=== PATIENT | female | born 1965 | race Caucasian/White ===

== ENCOUNTER → 2016-11-01 | Outpatient (CLI) | payer OTHER ==
[~2016-11-01] MED LIST: APRE1TAB3 PO; CYAN10005 PO; Calcium PO; FSMD/70 PO; KRIL1000 PO; MULT-506 PO; TAMO20TA47 PO; TRAM-10 PO; VITA100C4 PO; [UNRECOGNIZED DRUG - OTHER]; vitamin D
== END | disposition home or self-care (01) ==
LOC: C.MAMM 10:36
PROVIDERS: ATTEND Nurse Practitioner
DX: C50.919 Malignant neoplasm of unspecified site of unspecified female breast (principal)

== ENCOUNTER → 2016-12-17 | Outpatient (CLI) | payer OTHER ==
[2016-12-17 16:54] LABS: BASO % 0.5 %; BASO ABS # 0.02 K/uL (0-0.2); COMPLETE YES; EOS % 0.8 %; LYMPH % 19.5 %; LYMPH ABS # 0.77 K/uL (1.2-3.4); MEAN CELL VOLUME 89.2 fL (80-100); MEAN CORPUSCULAR HEMOGLOBIN 29.3 pg (25-34); MEAN CORPUSCULAR HGB CONC 32.9 g/dl (32-36); MEAN PLATELET VOLUME 11.3 fL (7.4-10.4); MONO % 11.1 %; NEUT % 68.1 %; PLATELET COUNT 195 K/uL (130-400); RED BLOOD COUNT 4.71 M/uL (4.2-5.4); WHITE BLOOD COUNT 3.95 K/uL (4.8-10.8)
[2016-12-17 17:02] LABS: CHOLESTEROL/HDL RATIO 2.2
== END | disposition home or self-care (01) ==
LOC: C.LABBFT 12:49
PROVIDERS: ATTEND Internal Medicine
DX: E55.9 Vitamin D deficiency, unspecified (principal); D72.819 Decreased white blood cell count, unspecified; Z13.6 Encounter for screening for cardiovascular disorders

== ENCOUNTER → 2017-06-27 | Outpatient (CLI) | payer OTHER ==
[2017-06-27 17:34] LABS: BASO % 0.5 %; BASO ABS # 0.02 K/uL (0-0.2); COMPLETE YES; EOS % 1.1 %; HEMATOCRIT 40.7 % (37-47); IG% 0.2 %; LYMPH % 14.1 %; LYMPH ABS # 0.62 K/uL (1.2-3.4); MEAN CORPUSCULAR HGB CONC 32.2 g/dl (32-36); MEAN PLATELET VOLUME 11.2 fL (7.4-10.4); MONO % 9.8 %; NEUT % 74.3 %; PLATELET COUNT 193 K/uL (130-400); RED BLOOD COUNT 4.52 M/uL (4.2-5.4); WHITE BLOOD COUNT 4.41 K/uL (4.8-10.8)
[2017-06-27 17:43] LABS: ALT/SGPT 28 U/L (12-78); BLOOD UREA NITROGEN 14 mg/dl (7-18); BUN/CREATININE RATIO 19.3 (10-20); CARBON DIOXIDE 28 mmol/L (21-32); CHLORIDE 104 mmol/L (98-107); CREATININE 0.71 mg/dl (0.60-1.20); GLUCOSE 82 mg/dl (70-99); POTASSIUM 3.9 mmol/L (3.5-5.1); SODIUM 139 mmol/L (136-145)
[2017-06-27 17:45] LABS: ALB/GLOB RATIO 1.1 (0.9-2); ALKALINE PHOSPHATASE 63 U/L (45-117); AST/SGOT 27 U/L (15-37)
== END | disposition home or self-care (01) ==
LOC: C.LABBFT 13:40
PROVIDERS: ATTEND Internal Medicine
DX: D72.819 Decreased white blood cell count, unspecified (principal)

== ENCOUNTER → 2017-07-20 | Outpatient (CLI) | payer OTHER ==
--- NOTE | 2017-07-21 07:48 | MAMMOGRAPHY REPORT ---
BILATERAL DIGITAL DIAGNOSTIC MAMMOGRAM TOMOSYNTHESIS WITH CAD: 07/20/2017 CLINICAL HISTORY: History of left breast cancer status post lumpectomy in 2010, who presents for rout ine annual mammography. The patient reports no current complaints. TECHNIQUE: Breast tomosynthesis in addition to standard 2D mammography was performed. Current study was also evaluated with a Computer Aided Detection (CAD) system. Bilateral CC and MLO 2-D and tomosy nthesis images were obtained. COMPARISON: Comparison is made to exams dated: 06/30/2016 mammogram, 06/18/2015 mammogram, 06/12/2014 m ammogram, 12/05/2013 mammogram, 05/30/2013 mammogram, and 09/10/2011 mammogram - [facility] BREAST COMPOSITION: The tissue of both breasts is heterogeneously dense, which may obscure small mas ses. FINDINGS: There are no suspicious masses, calcifications, or areas of nonsurgical architectural disto rtion noted in either breast. There has been no significant interval change compared to prior exams. There are stable post surgical changes from left breast from prior lumpectomy and stable post surgi maría changes from right reduction mammoplasty. A linear scar marker denotes a scar on the left superi or breast. Biopsy marker clips are again noted within the left medial and right upper outer breast. Bilateral asymmetries are stable, including an ovoid 18 mm asymmetry in the left medial breast adjac ent to the biopsy marker clip which is stable dating back to at least the 2012 exam. Scattered bilat eral benign-appearing calcifications are also unchanged. IMPRESSION: ACR BI-RADS CATEGORY 2: BENIGN There is no mammographic evidence of malignancy in either breast. A 1 year screening mammogram is rec ommended. The patient has been verbally notified of the results. Approximately 10% of breast cancers are not detected with mammography. A negative mammographic report should not delay biopsy if a clinically suggestive mass is present. Conchita Navarro M.D. /:07/20/2017 13:27:36 [facility] Supervisor: Promise STOCKTON)([place]), [facility] letter sent: Normal 1/2 BI-RADS Code: ACR BI-RADS Category 2: Benign
== END | disposition home or self-care (01) ==
LOC: C.MAMM 12:54
PROVIDERS: ATTEND Nurse Practitioner Family
DX: Z12.31 Encounter for screening mammogram for malignant neoplasm of breast (principal); Z85.3 Personal history of malignant neoplasm of breast

== ENCOUNTER 2018-02-13 12:27 | Emergency (ER) | payer OTHER ==
[~2018-02-13] VITALS: Ht 167.6 cm; Wt 62.2 kg
[~2018-02-13 12:27] MED LIST changes: -TAMO20TA47 PO; +TAMO20TA9 PO
[2018-02-13 12:39] VITALS: TEMP 37; Ht 167.6 cm; Wt 62.2 kg
[2018-02-13] MEDS ORDERED: VITACAP37 PO (12:55)
--- NOTE | 2018-02-13 13:06 | DIAGNOSTIC IMAGING REPORT ---
R WRIST MIN 3 VIEWS ROUTINE CLINICAL HISTORY: R wrist pain/ecchymosis COMPARISON: None FINDINGS: Note is made of an acute nondisplaced distal right radial fracture with intra-articular extension. This likely extends through the radial styloid. Carpal bones are intact. There is no distal right ulnar fracture. Right wrist soft tissue swelling is noted. IMPRESSION: Acute nondisplaced distal right radial fracture with intra-articular extension. Fracture likely extends through the radial styloid. Electronically signed by: Carlos Hall M.D. 02/13/2018 1:05 PM Dictated Date/Time: 02/13/2018 1:01 PM
[2018-02-13 14:06] VITALS: BP 126/84; PULSE 76; O2SAT 98
--- NOTE | 2018-02-13 14:09 | EMERGENCY ROOM VISIT NOTE ---
History First contact with patient: 12:41 Chief Complaint: WRIST PAIN Stated Complaint: WRIST PAIN, UNSURE IF BROKE OR NOT History of Present Illness The patient is a 53 year old female who presents to the Emergency Room with complaints of persistent right wrist pain and bruising after pushing a piece of furniture yesterday. As she was pushing on a futon, she reports feeling a pop in her wrist. She has had swelling and bruising. The injury happened around noontime yesterday. The patient denies any paresthesias or numbness of the right hand or fingers. She denies any pain extending into the wrist. The patient is right-hand dominant, and rates her discomfort a 5 out of 10. The patient denies taking any NSAIDs or other blood thinners. Review of Systems 10 system review was performed and was negative except for pertinent positives and negatives as indicated in history of present illness Past Medical/Surgical History Medical Problems: (1) Breast cancer (2) Psoriatic arthritis Family History Diabetes mellitus Social History Smoking Status: Never Smoker Drug Use: none Marital Status: Housing Status: lives with family Current/Historical Medications Scheduled Apremilast (Otezla), 30 MG PO BID Cyanocobalamin (Vitamin B-12), 1,000 MCG PO QAM Krill Oil (Krill Oil), 1 CAP PO QAM Multivitamin (Multivitamin), 1 TAB PO QAM Vitamin E (E-400), 400 UNITS PO DAILY Physical Exam Vital Signs Date Time Temp Pulse Resp B/P (MAP) Pulse Ox O2 Delivery O2 Flow Rate FiO2 18 12:39 37.0 85 18 122/64 95 Room Air Physical Exam CONSTITUTIONAL: Healthy and well nourished. Alert and oriented X 3 with positive affect. Patient does not appear in any acute distress. HEENT: Normocephalic, atraumatic. Pupils equal, round and reactive. NECK: Full active range of motion without discomfort. MUSCULOSKELETAL: Examination shows ecchymosis over the radial aspect of the wrist. She also has a small amount of ecchymosis over the ulnar aspect of the wrist. No significant anatomic snuffbox tenderness. No tenderness to palpation through the phalanges or metacarpals. Capillary refill is less than 2 seconds. INTEGUMENTARY: No rash or other significant dermatologic conditions noted. NEUROLOGIC: No focal neurologic deficits noted. Right hand and fingers are sensory intact. Medical Decision & Procedures ER Provider Diagnostic Interpretation: My interpretation of right wrist x-ray shows an intra-articular fracture of the distal radius styloid, and extending into the radiocarpal joint. Radiologist report is as follows: R WRIST MIN 3 VIEWS ROUTINE CLINICAL HISTORY: R wrist pain/ecchymosis COMPARISON: None FINDINGS: Note is made of an acute nondisplaced distal right radial fracture with intra-articular extension. This likely extends through the radial styloid. Carpal bones are intact. There is no distal right ulnar fracture. Right wrist soft tissue swelling is noted. IMPRESSION: Acute nondisplaced distal right radial fracture with intra-articular extension. Fracture likely extends through the radial styloid. ED Course Patient history and physical exam were performed. Nurse's notes were reviewed. Vital signs were reviewed and were normal. The patient refused any analgesics while in the emergency department. X-rays of the right wrist shows a nondisplaced fracture of the distal radius that extends into the radial styloid and radiocarpal joint. A volar Ortho-Glass splint was applied. Neurovascular check after splint placement was normal. The patient reports that she would follow-up with [facility] for further reevaluation and management. She was encouraged to intermittently apply ice and elevate the wrist for swelling and pain. Ibuprofen and Tylenol if needed for additional pain relief. The patient was happy with plan of care, voiced understanding of all discharge instructions, and denied any significant discomfort at the time of discharge. Medical Decision Medication Reconcilliation Current Medication List: was personally reviewed by ca Blood Pressure Screening Patient's blood pressure: Normal blood pressure Impression Primary Impression: Fracture of right distal radius Departure Information Dispostion Home / Self-Care Referrals Chance Abernathy M.D. Forms HOME CARE DOCUMENTATION FORM, IMPORTANT VISIT INFORMATION Patient Instructions My [facility] Additional Instructions Ice and elevate arm for swelling and pain. Ibuprofen 800 mg and/or Tylenol 1000 mg every 8 hours. You may also alternate these medications for more effective pain relief: Ibuprofen --4 HRS--> Tylenol --4 HRS--> ibuprofen --4 HRS--> Tylenol .... Keep splint dry. Follow-up with [facility] (Dr. Abernathy) for further evaluation and treatment - call for appointment. Problem Qualifiers Primary Impression: Fracture of right distal radius Encounter type: initial encounter Fracture type: closed Fracture morphology : other intra-articular Qualified Codes: S52.571A - Other intraarticular fracture of lower end of right radius, initial encounter for closed fracture
== END 2018-02-13 14:06 | disposition home or self-care (01) ==
LOC: C.EDB 12:29 → C.EDD 14:06
DX: S52.501A Unspecified fracture of the lower end of right radius, initial encounter for closed fracture (principal); X50.9XXA Other and unspecified overexertion or strenuous movements or postures, initial encounter; L40.50 Arthropathic psoriasis, unspecified

== ENCOUNTER → 2018-05-22 | Outpatient (CLI) | payer OTHER ==
[~2018-05-22] MED LIST changes: -Calcium PO; -FSMD/70 PO; -TAMO20TA9 PO; -TRAM-10 PO; -VITA100C4 PO; +VITACAP37 PO; -[UNRECOGNIZED DRUG - OTHER]; -vitamin D
[2018-05-22 17:31] LABS: BASO % 0.6 %; BASO ABS # 0.02 K/uL (0-0.2); EOS % 1.4 %; EOS ABS # 0.05 K/uL (0-0.5); HEMATOCRIT 41.5 % (37-47); HEMOGLOBIN 13.4 g/dL (12.0-16.0); LYMPH ABS # 0.77 K/uL (1.2-3.4); MEAN CELL VOLUME 87.9 fL (80-100); MEAN CORPUSCULAR HEMOGLOBIN 28.4 pg (25-34); MEAN CORPUSCULAR HGB CONC 32.3 g/dl (32-36); MEAN PLATELET VOLUME 11.5 fL (7.4-10.4); MONO % 8.6 %; NEUT % 67.4 %; NEUT ABS # 2.36 K/uL (1.4-6.5); PLATELET COUNT 200 K/uL (130-400); RED CELL DISTRIBUTION WIDTH CV 15.7 % (11.5-14.5)
[2018-05-22 17:56] LABS: ALBUMIN 3.8 gm/dl (3.4-5.0); ALKALINE PHOSPHATASE 76 U/L (45-117); ALT/SGPT 31 U/L (12-78); AST/SGOT 27 U/L (15-37); BLOOD UREA NITROGEN 17 mg/dl (7-18); CALCIUM 9.7 mg/dl (8.5-10.1); CARBON DIOXIDE 30 mmol/L (21-32); CHOLESTEROL 177 mg/dl (0-200); GLUCOSE 79 mg/dl (70-99); LDL CHOLESTEROL CALCULATED 84 mg/dl; POTASSIUM 4.3 mmol/L (3.5-5.1); SODIUM 141 mmol/L (136-145); TOTAL PROTEIN 7.6 gm/dl (6.4-8.2)
== END | disposition home or self-care (01) ==
LOC: C.LABBFT 11:22
PROVIDERS: ATTEND Internal Medicine
DX: L40.50 Arthropathic psoriasis, unspecified (principal); E55.9 Vitamin D deficiency, unspecified; D72.819 Decreased white blood cell count, unspecified; R25.1 Tremor, unspecified; Z13.6 Encounter for screening for cardiovascular disorders

== ENCOUNTER 2025-06-20 14:29 | Observation (INO) ==
--- NOTE | 2025-06-20 15:12 | Emergency Department Note ---
Impression & Plan Severe right groin pain, Obturator hernia ED Provider Note CHIEF COMPLAINT: Abdominal pain HISTORY OF PRESENTING ILLNESS: This 60-year-old female patient presents to the emergency department with her daughter for evaluation of right groin pain for the past month. The patient had an ultrasound performed last week that showed a hernia. The patient is now unable to ambulate without severe pain in the area. She also reports the pain has been radiating into her right hip. The patient saw Dr. Astorga of surgery today and had an order for an outpatient CT scan. However, the patient is still waiting for authorization of the CT scan and she cannot tolerate the pain anymore. She denies any changes in her BMs. Has had a decreased appetite, but no nausea or vomiting. Denies any urinary symptoms. Denies chest pain or SOB. She has had previous hernia repairs in the same location in the past by Dr. Jacques in 2019 and 2022. She has had an appendectomy, complete hysterectomy, , and tummy tuck in the past. She has a history of breast cancer in remission since 2011 and not currently on any medications for the breast cancer. She is not on any blood thinners. She had a piece of licorice just before she came to the ER. She had a Fairlife drink and some chips around 1:30 pm. She had yogurt at 6:30 am. REVIEW OF SYSTEMS: See HPI for pertinent positives and pertinent negatives. ALLERGIES: Amoxicillin, Latex, pollen extracts MEDICATIONS: See below PAST MEDICAL HISTORY: See below PHYSICAL EXAM: VITALS: Vitals are noted on the nurse's note and reviewed by myself. GENERAL: Non toxic, in no acute distress, non-diaphoretic. SKIN: No significant erythema, ecchymosis, or other color changes in the right lower quadrant. Capillary refill <2 sec. HEART: Regular rate and rhythm without murmurs gallops or rubs. LUNGS: Clear to auscultation bilaterally without wheezes, rales or rhonchi. No retractions or accessory muscle use. ABDOMEN: Positive bowel sounds x 4. Normal tympanic percussion. Tenderness of palpation to the right lower abdomen with what appears to be a hernia. No obvious strangulation or incarceration at this time. No other masses or hepatosplenomegaly. Dia sign negative. No CVA tenderness. No guarding, rigidity, or rebound tenderness. MUSCULOSKELETAL: No tenderness to palpation of the bony aspects of the right hip or right lower extremity. Full range of motion of the right lower extremity without pain in the hip joint, but she does have pain in the right lower quadrant of the abdomen with range of motion of the hip. NEURO: Patient was alert and oriented. No focal neurological deficits. DIFFERENTIAL DIAGNOSIS: Differential diagnosis includes incarcerated hernia, strangulated hernia, ischemic hernia, hepatitis, pancreatitis, cholecystitis, cholelithiasis, appendicitis, kidney stone, pyelonephritis, UTI, gastritis, gastroenteritis, mesenteric adenitis, obstruction, constipation, hernia, abdominal abscess, perforation, diverticulitis, IBD, ischemic colitis, abdominal aortic aneurysm, , ectopic , ovarian cyst, ovarian torsion, acute salpingitis, or others. ED COURSE AND MEDICAL DECISION MAKING: MEDICATIONS GIVEN: 1 L normal saline solution bolus. Tylenol 1000 mg IV. Morphine 4 mg IV and Zofran 4 mg IV. INTERPRETATION OF LABS: I interpreted the labs with full lab results as below in the lab section of this note. Laboratory results pertinent to the emergent complaint are discussed in the MDM section below. The patient was advised to follow up with their PCP and/or specialist(s) for further outpatient monitoring and management of any abnormal results. INTERPRETATION OF IMAGING: Imaging studies were interpreted by myself and read by radiology as per the imaging section of this note. The patient was advised to follow up with their PCP and/or specialist(s) for further outpatient management of any non-emergent abnormal findings. CT scan of the abdomen and pelvis with IV contrast shows a fat-containing right sided obturator canal hernia associated with prominent surrounding inflammatory fat stranding suggesting ischemia. No bowel herniation. A left-sided fatty obturator hernia is also seen without inflammatory change. Postsurgical changes of the right inguinal hernia repair. EXTERNAL RECORDS REVIEWED: I reviewed the patient's most recent PCP office visit note from 06/19/2025 as well as the patient's outpatient ultrasound. CONSULTATIONS: The patient's PCP, Dr. Frost. Dr. Melissa of surgery. On-call hospitalist. MDM SUMMARY: The patient was seen during a time of extreme volume and extreme acuity. Nursing triage protocols were initiated with IV lock, labs, and/or imaging studies conducted by protocol in the triage area. The patient was initially evaluated in a triage room and then re-evaluated once they were taken back to an exam room. The patient has been having right groin pain for the past month. The patient had an outpatient ultrasound performed on 06/11/2025 that showed a fat-containing hernia measuring 3 cm which is partially reducible. The patient was then seen in the ER on 06/16/2025 with x-rays of her lumbar spine and right hip/pelvis performed that showed degenerative changes, but no other acute abnormalities. The patient was seen by surgery today and an outpatient CT scan was ordered. However, the patient does not feel her pain can be controlled well enough while waiting for authorization of the CT scan. On exam, the patient does have right lower quadrant abdominal pain and a possible hernia. No obvious strangulation or incarceration on physical exam. The patient was given 1 L normal saline solution bolus, Tylenol 1000 mg IV, morphine 4 mg IV, and Zofran 4 mg IV. CBC without leukocytosis, anemia, or thrombocytopenia. Creatinine low at 0.59, but BUN elevated at 32. Glucose 129, but CMP otherwise without concerning abnormalities. Lipase normal. Urinalysis normal. CT scan of the abdomen and pelvis with IV contrast shows a fat-containing right sided obturator canal hernia associated with prominent surrounding inflammatory fat stranding suggesting ischemia. No bowel herniation. A left-sided fatty obturator hernia is also seen without inflammatory change. Postsurgical changes of the right inguinal hernia repair. I spoke with Dr. Melissa of general surgery in regards to the patient's CT scan findings. He reviewed the CT scan images. She has had open and laparoscopic repairs in that area before and Dr. Melissa was concerned about the location of the hernia as well as possible complications from her previous surgeries. He recommended that if the patient's symptoms can be controlled, she can can be discharged home with follow up at a tertiary center for surgical repair. However, if the patient's pain could not be controlled, the patient could be admitted by medicine with surgical consult to discuss her options. Dr. Melissa stated that there was no urgent need for OR tonight. The patient's PCP, Dr. Frost, had contacted me in regards to the patient while we were waiting for the results of the CT scan. He voiced concern of the patient's significant symptoms as an outpatient and concern for pain control and discovering the etiology of her symptoms. The patient had improved, but continued pain after the above pain medication. She did not feel that her pain could be well-controlled at home with discharge. The patient would like to be admitted for pain control and further surgical evaluation. I spoke with the on-call hospitalist who agreed to admit the patient for further evaluation and treatment. Please refer to their dictation for further details. The patient's care was transferred in stable condition. DIAGNOSIS: Right obturator hernia with ischemia causing significant pain Past Med/Surg History Problem List (Updated 06/21/25 @ 00:15 by Sally Tom PA-C) Obturator hernia (Acute) Severe right groin pain (Acute) Inguinal hernia (Acute) Sciatica (Acute) Allergic rhinitis Psoriatic arthritis F/U DR TYRESE QUACH Cluster headache, episodic with mixed migraines- follows with neuro Migraine without aura and responsive to treatment Atypical nevi (Acute) Herpes labialis (Acute) High risk medication use (Acute) History of carcinoma in situ of breast (Acute) Leukopenia (Acute) Osteopenia Psoriasis (Acute) Vitamin D deficiency (Acute) Calcaneus fracture (Acute) Psoriatic arthritis (Chronic) Breast cancer S/p left partial mastectomy 2010 with XRT. Completed 5 years of tamoxifen- current in remission - pt denies limb restriction Medical History History of COVID-19 10/08/21- when tested preoperatively- mild congestion- has since resolved Migraine Right inguinal hernia Surgical History H/O right inguinal hernia repair (10/29/21) Right Laparoscopic Inguinal Hernia Repair Possible Open - Tom Jacques MD, FACS 10/29/2021 History of foot surgery BL H/O right inguinal hernia repair Right Open Inguinal Hernia Repair Dr. Jacques 09/04/2020: LMA#4, no issues per anesthesia postop progress note. History of colonoscopy H/O hernia repair (~1996) History of partial mastectomy of left breast 09/30/11-BREAST CANCER-NO ARM RESTRICTION PER PT History of laparoscopy 1990 History of hysterectomy RIGHT OOPHORECTOMY DUE TO ENDOMETRIOSIS 1990 SUBSEQUENTLY HAD HYSTERECTOMY WITH REMOVAL OF THE LEFT OVARY IN THE MID History of section TRIPLETS GMG History of appendectomy (1995) Family History Mother Diabetes Aunt Breast cancer Diabetes Brother Diabetes Aunt Diabetes Aunt Diabetes Father Unknown family medical history Brother Diabetes Denies family history of Ovarian cancer Prostate cancer Coronary heart disease Colorectal cancer Social History (Updated 06/19/25 @ 15:04 by PARDEEP Contreras) Smoking Status: Never smoker Second Hand Exposure: No; Do You Dip or Chew Tobacco: No; Hx Alcohol Use: No Hx Substance Use: No Preferred Language: Northern Irish Communication Ability: Effective Visual Impairment: No Limitations Hearing Ability: Normal 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 Beliefs That Will Affect Care: None marital status: Current Living Situation: Spouse and Parent Current Living Situation Comment: home with current occupational status: employed current occupation: [employer] Other Information That Helps Us Care for You: No Feels Safe at Home: Yes Safety Concerns: Feels Safe At This Time Childhood Exposure to Second-Hand Smoke: No Diet: regular caffeine: Yes Dental Care, Regularly: Yes Physical Activity Frequency: Daily Seatbelt Use: always Sunscreen Use: Yes Assistive Devices: None Allergies Allergies Allergy/AdvReac Type Severity Reaction Status Date / Time amoxicillin Allergy Intermediate Hives Verified 06/20/25 18:55 latex Allergy Mild rash Verified 06/20/25 18:55 pollen extracts Allergy Mild NASAL Verified 06/20/25 18:55 SYMPTOMS tetracycline Allergy Mild RASH Verified 06/20/25 18:55 Home Meds Home Medications Medication Instructions Recorded Confirmed mecobalamin (vitamin B12) 1,000 1,000 mcg sublingual QAM 12/19/19 06/20/25 mcg disintegrating tablet,sublingual multivitamin 1 tab PO QAM 12/19/19 06/20/25 Green Barley Otc 4 cap PO BID 08/27/20 06/20/25 krill 1,000 mg-omega-3 230 mg-dha 1 cap PO BID 06/16/25 06/20/25 60 gz-jxd-oehmaibel-astaxan capsule sumatriptan succinate 100 mg tablet See Rx Instructions PO .COMPLEX 06/16/25 06/20/25 PRN Migraine Headache valacyclovir 1 gram tablet 2,000 mg PO .COMPLEX PRN OUT BREAKS 06/16/25 06/20/25 (Valtrex) vitamin E 268 mg (400 unit) capsule 268 mg PO DAILY 06/16/25 06/20/25 Previous Rx's Medication Instructions Recorded fluorouracil 5 % topical cream 1 applic topical .COMPLEX #5 grams 10/05/24 apremilast 30 mg tablet (Otezla) 30 mg PO BID #180 tabs 10/29/24 tramadol 50 mg tablet 50 mg PO Q6H PRN pain #100 tabs 06/04/25 tizanidine 4 mg tablet 4 mg PO Q8H PRN muscle spasticity 06/06/25 #30 tabs prednisone 20 mg tablet 20 mg PO DIRECTED 9 days #18 06/16/25 tabs prednisone 5 mg tablet 5 mg PO DAILY PRN psoriasis #100 06/17/25 tabs Results & Data (ED) Vital Signs Vital Signs - 24 hr 06/20/25 14:42 Temperature 36.7 C Temperature Source Temporal Artery Scan Pulse Rate 97 H Respiratory Rate 18 Respiratory Effort / Characteristics Non-Labored Spontaneous Respiratory Depth Normal Blood Pressure 129/78 Blood Pressure Mean 95 Blood Pressure Position Sitting Pulse Oximetry 95 Oxygen Delivery Method Room Air Sepsis Recent Fever Within 48 Hours No Sepsis New/Unexplained Change in Mental Status No Sepsis Action Taken by Nursing No Action Required Laboratory Data 06/20/25 15:39 06/20/25 15:39 Lab Results 06/20/25 Range/Units 15:39 WBC 6.85 (4.8-10.8) K/ul RBC 4.72 (4.20-5.40) M/uL Hgb 14.1 (12.0-16.0) g/dl Hct 43.6 (37.0-47.0) % MCV 92.4 (80.0-100.0) fL MCH 29.9 (25.0-34.0) pg MCHC 32.3 (32.0-36.0) g/dL RDW Std Deviation 50.1 H (36.4-46.3) fL RDW Coeff of Felipe 14.7 H (11.5-14.5) % Plt Count 233 (130-400) K/uL MPV 9.4 (9.4-12.4) fL Immature Gran % (Auto) 0.1 % Neut % (Auto) 95.2 % Lymph % (Auto) 3.6 % [place] % (Auto) 1.0 % Eos % (Auto) 0.0 % Baso % (Auto) 0.1 % Neut # (Auto) 6.51 H (1.40-6.50) K/uL Lymph # (Auto) 0.25 L (1.20-3.40) K/uL Hudson # (Auto) 0.07 L (0.11-0.59) K/uL Eos # (Auto) 0.00 (0.00-0.50) K/uL Baso # (Auto) 0.01 (0.00-0.20) K/uL Immature Gran # (Auto) 0.01 (0.01-0.20) K/uL Sodium 140 (136-145) mmol/L Potassium 3.8 (3.5-5.1) mmol/L Chloride 100 (98-107) mmol/L Carbon Dioxide 31 (21-32) mmol/L Anion Gap 9 (3-11) BUN 32 H (6-23) mg/dl Creatinine 0.59 L (0.6-1.2) mg/dl Est Cr Clr Drug Dosing Not Reportable eGFR 103.11 BUN/Creatinine Ratio 54.2 H (10-20) Glucose 129 H (70-99(Fasting)) mg/dl Calcium 10.1 (8.6-10.3) mg/dl Total Bilirubin 0.5 (0.2-1.0) mg/dl AST 29 (13-39) U/L ALT 29 (7-52) U/L Alkaline Phosphatase 86 (34-104) U/L Total Protein 8.4 H (6.0-8.3) gm/dl Albumin 4.8 (3.4-5.0) gm/dl Globulin 3.6 (2.5-4.0) gm/dl Albumin/Globulin Ratio 1.3 (0.9-2) Lipase 31 (11-82) U/L Urine Color Yellow Urine Appearance Turbid A (Clear) Urine pH 8.5 H (4.5-7.5) Ur Specific [place] 1.012 (1.000-1.030) Urine Protein Negative (Negative) Urine Glucose (UA) Negative (Negative) Urine Ketones Negative (Negative) Urine Blood Negative (Negative) Urine Nitrite Negative (Negative) Urine Bilirubin Negative (Negative) Urine Urobilinogen Negative (Negative) Ur Leukocyte Esterase Negative (Negative) Urine WBC (Auto) 0-5 (0-5) /hpf Urine RBC (Auto) 0-2 (0-2) /hpf U Hyaline Cast (Auto) 0-2 (0-2) /lpf U Epithel Cells (Auto) 0-2 (0-2) /hpf Urine Bacteria (Auto) None Seen (None Seen) Urine Comment Administered Medications Acetaminophen (Acetaminophen 500 Mg Tab) 1,000 mg PO Q8H JOEL Stop: 07/20/25 22:06 Last Admin: 06/20/25 23:07 Dose: 1,000 mg Documented By: asg Lactated Ringer's (Lr) 1,000 mls @ 100 mls/hr IV .Q10H JOEL Stop: 06/21/25 10:04 Last Admin: 06/20/25 23:11 Dose: 100 mls/hr Documented By: asg Morphine Sulfate (Morphine Sulfate 4 Mg/Ml 1 Ml Carp\Vial) 4 mg IV Q3H PRN PRN Reason: Pain (6,7,8,9,10) Stop: 07/04/25 22:06 Last Admin: 06/20/25 23:09 Dose: 4 mg Documented By: tamica Discontinued Medications Sodium Chloride (Nss) 1,000 mls @ 999 mls/hr IV .Q1H1M ONE Stop: 06/20/25 16:23 Last Infusion: 06/20/25 17:25 Dose: Infused Documented By: Admin: 06/20/25 15:36 Dose: 999 mls/hr Documented By: CC Acetaminophen (Ofirmev) 1,000 mg in 100 mls @ 400 mls/hr IV NOW STA Stop: 06/20/25 15:37 Last Infusion: 06/20/25 17:25 Dose: Infused Documented By: Admin: 06/20/25 15:35 Dose: 400 mls/hr Documented By: CC Ioversol (Optiray 320 100ml) 90 ml IV ONCE ONE Stop: 06/20/25 16:35 Last Admin: 06/20/25 16:34 Dose: 90 ml Documented By: DEANNA Morphine Sulfate (Morphine Sulfate 4 Mg/Ml 1 Ml Carp\Vial) 4 mg IV NOW STA Stop: 06/20/25 17:04 Last Admin: 06/20/25 17:21 Dose: 4 mg Documented By: CAP Morphine Sulfate (Morphine Sulfate 4 Mg/Ml 1 Ml Carp\Vial) 4 mg IV Q3H PRN PRN Reason: Pain (6,7,8,9,10) Stop: 07/04/25 19:53 Last Admin: 06/20/25 20:42 Dose: 4 mg Documented By: LIVIA Ondansetron HCl (Ondansetron Inj 2 Mg/Ml 2 Ml Vial) 4 mg IV NOW STA Stop: 06/20/25 17:04 Last Admin: 06/20/25 17:22 Dose: 4 mg Documented By: JESSICA Imaging Data Radiologist's Impression: Abdomen/Pelvis CT 06/20/25 15:24 EXAMINATION: CT of the abdomen and pelvis performed after the administration of IV contrast TECHNIQUE: Helical CT images from the lung bases through the symphysis pubis were obtained with contrast. Coronal and sagittal reformatted images were generated at a workstation for further assessment. Dose reduction techniques were achieved by using automatic exposure control and/or adjustment of mA and/or kV according to patient size and/or use of iterative reconstruction technique. COMPARISON: None HISTORY: Abdominal pain FINDINGS: Lower chest: No consolidation. No pleural effusion or pneumothorax. Liver: No suspicious liver lesions. Portal veins appear patent. Gallbladder: No gallstones. No evidence of acute cholecystitis. Spleen: Normal size. Pancreas: No suspicious pancreatic lesions. The pancreatic duct is not dilated. Adrenal glands: No adrenal nodules. Kidneys: No hydronephrosis or obstructing renal stones. Bladder / Pelvic organs: Unremarkable. Bowel: No bowel obstruction. No abnormal bowel wall thickening. The appendix is nonvisualized and there is no evidence for appendicitis. Lymph nodes: No retroperitoneal, mesenteric, or pelvic lymphadenopathy. Peritoneum / Retroperitoneum: No free fluid or air within the abdomen. Vessels: No infrarenal aortic aneurysm. Bones and soft tissues: No suspicious lesion in the bones. There are postsurgical changes of the right lower quadrant abdominal wall, suggesting prior inguinal hernia repair. Bilateral obturator hernia, which are fat-containing, measuring approximately 2 cm in diameter. The right hernia is associated with prominent surrounding inflammatory fat stranding. IMPRESSION: There is a fat-containing right sided obturator canal hernia, associated with prominent surrounding inflammatory fat stranding, suggesting ischemia. There is no bowel herniation. A left-sided fatty obturator hernia is also seen without inflammatory change. Postsurgical changes of right inguinal hernia repair. Electronically signed by Liam Acevedo 06-20-2025 4:56 PM Discharge Plan Visit Data Chief Complaint: Flank Pain Stated Complaint: HERNIA PAIN TRYING TO GET CT WALKING IN PAIN ED Provider: Gaetano Evans ED Midlevel Provider: Sally Tom Discharge Problem: Severe right groin pain, Obturator hernia Patient Disposition: Admitted As Inpatient Condition: Fair Discharge Instructions Interventions: ED Discharge Assessment Last Done: 06/20/25 21:24
[2025-06-20] MEDS: ACETAMINOPHEN 1,000 MG/100 ML VIAL IV STA (15:35)
[2025-06-20] MEDS: SODIUM CHLORIDE 0.9% 1,000 ML IV ONE (15:36)
[2025-06-20 15:53] LABS: Hematocrit (blood only) 43.6 % (37.0-47.0); Hemoglobin 14.1 g/dl (12.0-16.0); Mean Corpuscular Hemoglobin 29.9 pg (25.0-34.0); Mean Corpuscular Volume 92.4 fL (80.0-100.0); Platelet Count 233 K/uL (130-400); RDW Standard Deviation 50.1 fL (36.4-46.3); Red Blood Count 4.72 M/uL (4.20-5.40); White Blood Count 6.85 K/ul (4.8-10.8)
[2025-06-20 15:56] LABS: Appearance Urine Turbid (Clear); Bacteria Urine Automated None Seen (None Seen); Cast Urine Automated 0-2 /lpf (0-2); Epithelial Cell Urine Auto 0-2 /hpf (0-2); Glucose Urine UA Negative (Negative); RBC Urine Automated 0-2 /hpf (0-2); WBC Urine Automated 0-5 /hpf (0-5)
[2025-06-20 16:10] LABS: Immature Granulocytes # (auto) 0.01 K/uL (0.01-0.20); Immature Granulocytes % (auto) 0.1 %
[2025-06-20 16:13] LABS: Alanine Aminotransferase 29 U/L (7-52); Albumin Globulin Ratio 1.3 (0.9-2); Albumin Level 4.8 gm/dl (3.4-5.0); Alkaline Phosphatase 86 U/L (34-104); Anion Gap 9 (3-11); Bilirubin,Total 0.5 mg/dl (0.2-1.0); Blood Urea Nitrogen 32 mg/dl (6-23); Calcium 10.1 mg/dl (8.6-10.3); Carbon Dioxide 31 mmol/L (21-32); Chloride 100 mmol/L (98-107); Globulin 3.6 gm/dl (2.5-4.0); Glucose 129 mg/dl (70-99(Fasting)); Lipase 31 U/L (11-82); Potassium 3.8 mmol/L (3.5-5.1); Sodium 140 mmol/L (136-145); Total Protein 8.4 gm/dl (6.0-8.3)
[2025-06-20] MEDS: OPTIRAY 320 100ml IV ONE (16:34)
--- NOTE | 2025-06-20 16:58 | CT Scan Report ---
EXAMINATION: CT of the abdomen and pelvis performed after the administration of IV contrast TECHNIQUE: Helical CT images from the lung bases through the symphysis pubis were obtained with contrast. Coronal and sagittal reformatted images were generated at a workstation for further assessment. Dose reduction techniques were achieved by using automatic exposure control and/or adjustment of mA and/or kV according to patient size and/or use of iterative reconstruction technique. COMPARISON: None HISTORY: Abdominal pain FINDINGS: Lower chest: No consolidation. No pleural effusion or pneumothorax. Liver: No suspicious liver lesions. Portal veins appear patent. Gallbladder: No gallstones. No evidence of acute cholecystitis. Spleen: Normal size. Pancreas: No suspicious pancreatic lesions. The pancreatic duct is not dilated. Adrenal glands: No adrenal nodules. Kidneys: No hydronephrosis or obstructing renal stones. Bladder / Pelvic organs: Unremarkable. Bowel: No bowel obstruction. No abnormal bowel wall thickening. The appendix is nonvisualized and there is no evidence for appendicitis. Lymph nodes: No retroperitoneal, mesenteric, or pelvic lymphadenopathy. Peritoneum / Retroperitoneum: No free fluid or air within the abdomen. Vessels: No infrarenal aortic aneurysm. Bones and soft tissues: No suspicious lesion in the bones. There are postsurgical changes of the right lower quadrant abdominal wall, suggesting prior inguinal hernia repair. Bilateral obturator hernia, which are fat-containing, measuring approximately 2 cm in diameter. The right hernia is associated with prominent surrounding inflammatory fat stranding. IMPRESSION: There is a fat-containing right sided obturator canal hernia, associated with prominent surrounding inflammatory fat stranding, suggesting ischemia. There is no bowel herniation. A left-sided fatty obturator hernia is also seen without inflammatory change. Postsurgical changes of right inguinal hernia repair. Electronically signed by Liam Acevedo 06-20-2025 4:56 PM
[2025-06-20] MEDS: MoRPHine SULFATE 4 MG/ML 1 ML CARP\\VIAL IV STA (17:21)
[2025-06-20] MEDS: ONDANSETRON INJ 2 MG/ML 2 ML VIAL IV STA (17:22)
--- NOTE | 2025-06-20 19:22 | History & Physical Report ---
Date of Service June 20, 2025 Assessment & Plan (1) Severe right groin pain: (2) Inguinal hernia: (3) Obturator hernia: (4) Cluster headache, episodic: (5) Migraine without aura and responsive to treatment: (6) Psoriasis: (7) Psoriatic arthritis: (8) Breast cancer: Plan Polly Tidwell is a 60 y/o F with a past medical history of migraines, cluster headaches, osteopenia, breast cancer s/p L. partial mastectomy, allergic rhinitis, psoriasis, psoriatic arthritis, hx of vitamin d deficiency, HLD, and hx of R. inguinal hernia s/p multiple repairs arriving to the [facility] ED due to worsening R. low groin pain, with pain progressively intensifying for the past month. Patient admitted for pain control and surgical evaluation and treatment of R. incarcerated obturator hernia seen on U/S imaging confirmed with CT AP. BL obturator hernia/R. sided incarcerated obturator hernia w/o obstruction/gangrene - Progressively worsening pain for 1 month, 3cm enlarged herniation appreciated on U/S 06/11 - CT AP: BL obturator hernia, with R. sided hernia w/o bowel herniation but containing inflammatory fat stranding concerning for ischemia. Post-surgical changes of RLQ abdominal wall 2/2 hx of inguinal hernia repair. - Surgical consultation completed: Plans for surgery tomorrow 06/22 w/ Dr. Melissa - Pain control: Tylenol 1g PO Q8H, and Tramadol 50mg PO Q4H with IV morphine 2mg/4mg for pain levels 3-6 and 7-10 respectively; avoid NSAIDs/blood thinners given plans for surgical intervention - Nausea: Zofran 4mg Q4H - Bowel regimen: 17g Miralax JOEL daily, consider increase with worsening constipation - NPO at midnight; LR x 1L at 100mL/hr x 1 bag started at midnight, extend fluids supplementation based on time of surgery tomorrow Chronic problems: Psoriasis/Psoriatic arthritis: Hold prednisone/Otezla Vitamin B 12 deficiency: Hold B-12 supplementation Breast Cancer hx: S/p left partial mastectomy 2010 with XRT. Completed 5 years of tamoxifen- currently in remission Migraine w/ aura/cluster headaches: Hold sumatriptan FEN/GI: LR 1L at 100mL/hr x 1 bag started at midnight/NPO at midnight DVT prophylaxis: SCDs, hold chemoprophylaxis given surgical intervention tomorrow History of Present Illness Chief Complaint: R. groin pain Primary Care Provider: Liam Frost MD Polly Tidwell is a 60 y/o F with a past medical history of migraines, cluster headaches, osteopenia, breast cancer s/p L. partial mastectomy, allergic rhinitis, psoriasis, psoriatic arthritis, hx of vitamin d deficiency, HLD, and hx of R. inguinal hernia s/p multiple repairs arriving to the [facility] ED due to worsening R. low groin pain, with pain progressively intensifying for the past month. Patient was seen by Dr. Frost, her PCP, who recommended ED follow-up due to recent pelvic U/S 06/11/2025 showing a 3cm partially reducible fat-containing hernia that was larger than seen in previous imaging post-surgical reduction. Patient reports that she has had two surgeries to repair a R. sided inguinal hernia in the past both completed by Dr. Tom Montenegro. Patient reports that her first surgery was in 2019 and was an open procedure, and her second procedure was due to a reoccurrence of R. simple inguinal hernia that was completed laparoscopically with mesh placement. Patient was initially resistant to ED follow-up but she did see general surgery outpatient 06/20 prior to following up in the ED later on the same day after following recommendations. Today patient reports significant R. lower groin pain worsened when coughing, laughing, flexing/extending R. hip, and with abduction/extension of R. hip and ambulation. Patient reports that this pain is still a 7/10 after a dose of 4mg IV morphine in the ED, and patient reports that over the past few weeks the only remitting factors to her pain have been reduction of ambulation and mild relief with use of home tramadol medication. Patient had surgical consultation while in the ED, and potential surgery tomorrow was discussed with patient who is amenable to this plan. Patient denies chest pain, palpitations, SOB, cough, whee ze, nausea, vomiting, fevers, chills and recent illnesses. Patient is currently afebrile and hemodynamically stable. ED course: CBC/CMP/UA: Largely wnl, afebrile w/o leukocytosis, anemia, or thrombocytopenia. UA negative for infectious process CT AP: BL obturator hernia, with R. sided hernia w/o bowel herniation but containing inflammatory fat stranding concerning for ischemia. Post-surgical gibson nges of RLQ abdominal wall 2/2 hx of inguinal hernia repair. Pain/Nausea control: 4mg Morphine sulfate x1/Tylenol 1g IV and Zofran 4mg IV x1 given Fluids: 1L NSS bolus given in ED Allergies Allergy/AdvReac Type Severity Reaction Status Date / Time amoxicillin Allergy Intermediate Hives Verified 06/20/25 18:55 latex Allergy Mild rash Verified 06/20/25 18:55 pollen extracts Allergy Mild NASAL Verified 06/20/25 18:55 SYMPTOMS tetracycline Allergy Mild RASH Verified 06/20/25 18:55 Home Medications Medication Instructions Recorded Confirmed Type mecobalamin (vitamin B12) 1,000 1,000 mcg sublingual QAM 12/19/19 06/20/25 History mcg disintegrating tablet,sublingual multivitamin 1 tab PO QAM 12/19/19 06/20/25 History Green Barley Otc 4 cap PO BID 08/27/20 06/20/25 History fluorouracil 5 % topical cream 1 applic topical .COMPLEX #5 grams 10/05/24 06/20/25 Rx apremilast 30 mg tablet (Otezla) 30 mg PO BID #180 tabs 10/29/24 06/20/25 Rx tramadol 50 mg tablet 50 mg PO Q6H PRN pain #100 tabs 06/04/25 06/20/25 Rx tizanidine 4 mg tablet 4 mg PO Q8H PRN muscle spasticity 06/06/25 06/20/25 Rx #30 tabs krill 1,000 mg-omega-3 230 mg-dha 1 cap PO BID 06/16/25 06/20/25 History 60 vm-ygc-hsdywnzcg-astaxan capsule prednisone 20 mg tablet 20 mg PO DIRECTED 9 days #18 06/16/25 06/20/25 Rx tabs sumatriptan succinate 100 mg tablet See Rx Instructions PO .COMPLEX 06/16/25 06/20/25 History PRN Migraine Headache valacyclovir 1 gram tablet 2,000 mg PO .COMPLEX PRN OUT BREAKS 06/16/25 06/20/25 History (Valtrex) vitamin E 268 mg (400 unit) capsule 268 mg PO DAILY 06/16/25 06/20/25 History prednisone 5 mg tablet 5 mg PO DAILY PRN psoriasis #100 06/17/25 06/20/25 Rx tabs Past Med/Surg History Problem List (Updated 06/20/25 @ 20:32 by Donal Gonzales DO) Obturator hernia Severe right groin pain Inguinal hernia (Acute) Sciatica (Acute) Allergic rhinitis Psoriatic arthritis F/U DR TYRESE QUACH Cluster headache, episodic with mixed migraines- follows with neuro Migraine without aura and responsive to treatment Atypical nevi (Acute) Herpes labialis (Acute) High risk medication use (Acute) History of carcinoma in situ of breast (Acute) Leukopenia (Acute) Osteopenia Psoriasis (Acute) Vitamin D deficiency (Acute) Calcaneus fracture (Acute) Psoriatic arthritis (Chronic) Breast cancer S/p left partial mastectomy 2010 with XRT. Completed 5 years of tamoxifen- current in remission - pt denies limb restriction Medical History History of COVID-19 10/08/21- when tested preoperatively- mild congestion- has since resolved Migraine Right inguinal hernia Surgical History H/O right inguinal hernia repair (10/29/21) Right Laparoscopic Inguinal Hernia Repair Possible Open - Tom Jacques MD, FACS 10/29/2021 History of foot surgery BL H/O right inguinal hernia repair Right Open Inguinal Hernia Repair Dr. Jacques 09/04/2020: LMA#4, no issues per anesthesia postop progress note. History of colonoscopy H/O hernia repair (~1996) History of partial mastectomy of left breast 09/30/11-BREAST CANCER-NO ARM RESTRICTION PER PT History of laparoscopy 1990 History of hysterectomy RIGHT OOPHORECTOMY DUE TO ENDOMETRIOSIS 1990 SUBSEQUENTLY HAD HYSTERECTOMY WITH REMOVAL OF THE LEFT OVARY IN THE MID History of section TRIPLETS GMG History of appendectomy (1995) Family History Mother Diabetes Aunt Breast cancer Diabetes Brother Diabetes Aunt Diabetes Aunt Diabetes Father Unknown family medical history Brother Diabetes Denies family history of Ovarian cancer Prostate cancer Coronary heart disease Colorectal cancer Social History (Updated 06/19/25 @ 15:04 by PARDEEP Contreras) Smoking Status: Never smoker Second Hand Exposure: No; Do You Dip or Chew Tobacco: No; Hx Alcohol Use: No Hx Substance Use: No Preferred Language: Lithuanian Communication Ability: Effective Visual Impairment: No Limitations Hearing Ability: Normal Casket Trimmer Required: No Beliefs That Will Affect Care: None marital status: Current Living Situation: Spouse and Parent Current Living Situation Comment: home with current occupational status: employed current occupation: hairdresser Other Information That Helps Us Care for You: No Feels Safe at Home: Yes Safety Concerns: Feels Safe At This Time Childhood Exposure to Second-Hand Smoke: No Diet: regular caffeine: Yes Dental Care, Regularly: Yes Physical Activity Frequency: Daily Seatbelt Use: always Sunscreen Use: Yes Assistive Devices: None Physical Exam Physical Exam: General: patient resting comfortably, non-toxic in appearance, answers questions appropriately. Skin: warm, dry, intact HEENT: NC/AT, anicteric sclera, conjunctiva without injection, moist mucus membranes. Heart: +S1/S2, regular, no m/r/g Lungs: equal air entry bilaterally, no rales/rhonchi/wheezes Abd: +BS, soft, RLQ 3-4cm mass palpated along R. inguinal canal w/ significant tenderness on light palpation Ext: warm, no clubbing/cyanosis or edema, Jose Juan's neg. Neuro: nonfocal, speech intact, no facial droop, moving all extremities. Results & Data Results & Data Vital Signs (Past 12 Hours) Vital Signs Temp Pulse Resp BP Pulse Ox O2 Del Method 06/20/25 14:42 36.7 C 97 H 18 129/78 95 Room Air Supervising Physician Co-Signing Physician Notes Patient seen and examined, chart reviewed, case discussed with Dr. Gonzales and I agree with the assessment and plan as above. In brief, patient is a pleasant 60yo female presenting with worsening right groin pain - ongoing x 1 month. Patient found to have bilateral obturator hernia R > L. No bowel herniation but containing inflammatory fat stranding. On exam patient is afebrile, HD stable, mild hypertension in setting of pain (147/76) Skin - no rash HEENT - MMM, neck supple, MMM +S1/S2, regular, no m/r/g Lungs CTA Abd soft, NT/ND. Firm, palpable mass in right groin, tender to palpation Ext warm, well perfused Labs and images reviewed CT with fat-containing right sided obturator canal hernia associated with prominent surrounding inflammatory fat stranding suggesting ischemia. No bowel herniation. Also with left-sided fatty obturator hernia Assessment/Plan -Keep NPO after midnight -Pain control with Tylenol, Morphine PRN -LR at 100mL/hr x 1L to start when NPO -General Surgery consultation appreciated - plan for OR in AM -Remainder as above Resident Activity Tracking Resident Involvement: Resident Care Provided Care Provided: Adult Hospital Medicine (2) Inguinal hernia Laterality: unilateral Obstruction and gangrene presence: without obstruction or gangrene Recurrence: not specified as recurrent Qualified Code(s): K40.90 - Unilateral inguinal hernia, without obstruction or gangrene, not specified as recurrent
--- NOTE | 2025-06-20 19:26 | Surgery Consultation ---
Date of Consultation June 20, 2025 Assessment & Plan (1) Inguinal hernia: Patient with ongoing right groin pain for the last few months that has significantly worsened. The patient presented to the emergency department and upon workup was found to have CT findings concerning for a right sided fat-containing transit mix operator hernia with associated inflammation and fat stranding suggestive of ischemia as well as a left sided obturator hernia without any inflammatory changes. The patient has previously had right inguinal hernia repairs x2 (2019 and 2021). The patient has been admitted to the medical service for pain control and general surgery was consulted. From a surgical standpoint recommend the following: -Patient may have a diet, make NPO at midnight -Pain control -Discussed patient's case at length with attending surgeon, Dr. Mleissa. Due to patient's ongoing pain we will tentatively plan for right, possible left, hernia repair tomorrow 06/21/2025. -Appreciate medicine input Supervising Physician Co-Signing Physician Notes Patient discussed with ZACH, labs and imaging reviewed, agree with above. 60-year-old female with multiple prior open and laparoscopic right inguinal hernia repairs presenting to the emergency department with worsening lower groin and pelvis pain. CT scan showed bilateral obturator hernias containing fat, right side with some inflammation suggestive of incarceration. Admitted to medicine, will discuss possible repair tomorrow. History of Present Illness Reason for Consultation: Obturator hernia History of Present Illness Patient is a 60-year-old female presented to the emergency department this evening due to ongoing right groin pain. Patient states for the last month or so she has had worsening pain and did have an ultrasound last week that did show a hernia. Patient states that the pain has become so severe that she is having trouble walking at times. To note, the patient has previously undergone two right inguinal hernia repairs by Dr. Jacques back in 2019 and 2021. The patient states that she did have mesh placed with the repair that was done in 2021. The patient was seen in the outpatient general surgery setting today and Dr. Astorga did order an outpatient CT to be obtained, however the patient states that due to the pain she came to the emergency department shortly after her appointment for further evaluation. The patient states she has had decreased appetite, however denies any nausea or vomiting. Patient denies any bowel or urinary changes. Patient was worked up in the emergency department and CT imaging was obtained with concerns of right-sided fat containing obturator hernia with inflammatory changes with concern for ischemia along with a left- sided fatty transit mix operator hernia as well. The patient was seen and evaluated this evening in the emergency department. She is resting comfortably, VSS, and is nontoxic appearing. She does have a palpable hernia present over the right groin region with tenderness, no overlying skin changes are present. The patient does not take any anticoagulation medication. She does have a surgical history of , tummy tuck, total hysterectomy, and appendectomy in the past. Allergies Allergy/AdvReac Type Severity Reaction Status Date / Time amoxicillin Allergy Intermediate Hives Verified 06/20/25 18:55 latex Allergy Mild rash Verified 06/20/25 18:55 pollen extracts Allergy Mild NASAL Verified 06/20/25 18:55 SYMPTOMS tetracycline Allergy Mild RASH Verified 06/20/25 18:55 Home Medications Medication Instructions Recorded Confirmed Type mecobalamin (vitamin B12) 1,000 1,000 mcg sublingual QAM 12/19/19 06/20/25 History mcg disintegrating tablet,sublingual multivitamin 1 tab PO QAM 12/19/19 06/20/25 History Green Barley Otc 4 cap PO BID 08/27/20 06/20/25 History fluorouracil 5 % topical cream 1 applic topical .COMPLEX #5 grams 10/05/24 06/20/25 Rx apremilast 30 mg tablet (Otezla) 30 mg PO BID #180 tabs 10/29/24 06/20/25 Rx tramadol 50 mg tablet 50 mg PO Q6H PRN pain #100 tabs 06/04/25 06/20/25 Rx tizanidine 4 mg tablet 4 mg PO Q8H PRN muscle spasticity 06/06/25 06/20/25 Rx #30 tabs krill 1,000 mg-omega-3 230 mg-dha 1 cap PO BID 06/16/25 06/20/25 History 60 ab-aqu-vnraywtaf-astaxan capsule prednisone 20 mg tablet 20 mg PO DIRECTED 9 days #18 06/16/25 06/20/25 Rx tabs sumatriptan succinate 100 mg tablet See Rx Instructions PO .COMPLEX 06/16/25 06/20/25 History PRN Migraine Headache valacyclovir 1 gram tablet 2,000 mg PO .COMPLEX PRN OUT BREAKS 06/16/25 06/20/25 History (Valtrex) vitamin E 268 mg (400 unit) capsule 268 mg PO DAILY 06/16/25 06/20/25 History prednisone 5 mg tablet 5 mg PO DAILY PRN psoriasis #100 06/17/25 06/20/25 Rx tabs Patient History Medical History History of COVID-19 10/08/21- when tested preoperatively- mild congestion- has since resolved Migraine Right inguinal hernia Surgical History H/O right inguinal hernia repair (10/29/21) Right Laparoscopic Inguinal Hernia Repair Possible Open - Tom Jacques MD, FACS 10/29/2021 History of foot surgery BL H/O right inguinal hernia repair Right Open Inguinal Hernia Repair Dr. Jacques 09/04/2020: LMA#4, no issues per anesthesia postop progress note. History of colonoscopy H/O hernia repair (~1996) History of partial mastectomy of left breast 09/30/11-BREAST CANCER-NO ARM RESTRICTION PER PT History of laparoscopy 1990 History of hysterectomy RIGHT OOPHORECTOMY DUE TO ENDOMETRIOSIS 1990 SUBSEQUENTLY HAD HYSTERECTOMY WITH REMOVAL OF THE LEFT OVARY IN THE MID History of section TRIPLETS GMG History of appendectomy (1995) Family History Mother Diabetes Aunt Breast cancer Diabetes Brother Diabetes Aunt Diabetes Aunt Diabetes Father Unknown family medical history Brother Diabetes Denies family history of Ovarian cancer Prostate cancer Coronary heart disease Colorectal cancer Social History (Updated 06/19/25 @ 15:04 by PARDEEP Contreras) Smoking Status: Never smoker Second Hand Exposure: No; Do You Dip or Chew Tobacco: No; Hx Alcohol Use: Yes Alcohol type: wine Alcohol Intake Frequency Comment: Occasional Hx Substance Use: No Preferred Language: Turkmen Communication Ability: Effective Visual Impairment: No Limitations Hearing Ability: Normal Fish And Wildlife Warden Required: No Beliefs That Will Affect Care: None marital status: Current Living Situation: Spouse current occupational status: employed current occupation: hairdresser Feels Safe at Home: Yes Childhood Exposure to Second-Hand Smoke: No Diet: regular caffeine: Yes Dental Care, Regularly: Yes Physical Activity Frequency: Daily Seatbelt Use: always Sunscreen Use: Yes Assistive Devices: None Review of Systems Constitutional: no fever, no chills and no weakness Respiratory: no cough, no chest congestion and no dyspnea Cardiovascular: no chest pain, no palpitations and no syncope Gastrointestinal: no abdominal pain, no nausea and no vomiting Genitourinary: no dysuria, no difficulty urinating and no hematuria Physical Exam Constitutional: WD/WN, vitals as above Respiratory: normal respiratory effort, lungs clear to auscultation Cardiovascular: RRR, no murmur, no edema Gastrointestinal (Abdomen): abdomen soft, nondistended, nontender +Right groin/inguinal region palpable he rnia present overlying tenderness palpation, unable to reduce. No overlying skin changes appreciated +Small left inguinal hernia palpated, no ntender, no skin changes. Skin: no rashes, warm and dry Results & Data Vital Signs (Past 12 Hours) Vital Signs Temp Pulse Resp BP Pulse Ox O2 Del Method 06/20/25 14:42 36.7 C 97 H 18 129/78 95 Room Air Diagnostic Findings EXAMINATION: CT of the abdomen and pelvis performed after the administration of IV contrast TECHNIQUE: Helical CT images from the lung bases through the symphysis pubis were obtained with contrast. Coronal and sagittal reformatted images were generated at a workstation for further assessment. Dose reduction techniques were achieved by using automatic exposure control and/or adjustment of mA and/or kV according to patient size and/or use of iterative reconstruction technique. COMPARISON: None HISTORY: Abdominal pain FINDINGS: Lower chest: No consolidation. No pleural effusion or pneumothorax. Liver: No suspicious liver lesions. Portal veins appear patent. Gallbladder: No gallstones. No evidence of acute cholecystitis. Spleen: Normal size. Pancreas: No suspicious pancreatic lesions. The pancreatic duct is not dilated. Adrenal glands: No adrenal nodules. Kidneys: No hydronephrosis or obstructing renal stones. Bladder / Pelvic organs: Unremarkable. Bowel: No bowel obstruction. No abnormal bowel wall thickening. The appendix is nonvisualized and there is no evidence for appendicitis. Lymph nodes: No retroperitoneal, mesenteric, or pelvic lymphadenopathy. Peritoneum / Retroperitoneum: No free fluid or air within the abdomen. Vessels: No infrarenal aortic aneurysm. Bones and soft tissues: No suspicious lesion in the bones. There are postsurgical changes of the right lower quadrant abdominal wall, suggesting prior inguinal hernia repair. Bilateral obturator hernia, which are fat-containing, measuring approximately 2 cm in diameter. The right hernia is associated with prominent surrounding inflammatory fat stranding. IMPRESSION: There is a fat-containing right sided obturator canal hernia, associated with prominent surrounding inflammatory fat stranding, suggesting ischemia. There is no bowel herniation. A left-sided fatty obturator hernia is also seen without inflammatory change. Postsurgical changes of right inguinal hernia repair. PG Care Time/CCT Total # of Minutes Spent Total Time Spent with Patient: Total time spent is greater than 50% in coordination of care (as documented) at patient's floor/unit and/or counseling patient: [place] [address] Office/OBS Consult Lvl 1 Patient Type New Medical Decision Making Straight Forward Diagnoses Inguinal hernia K40.90 Laterality: unilateral Obstruction and gangrene presence: without obstruction or gangrene Recurrence: not specified as recurrent (1) Inguinal hernia Laterality: unilateral Obstruction and gangrene presence: without obstruction or gangrene Recurrence: not specified as recurrent Qualified Code(s): K40.90 - Unilateral inguinal hernia, without obstruction or gangrene, not specified as recurrent
[2025-06-20] MEDS ORDERED: MoRPHine SULFATE 2 MG/ML CARP IV PRN ×2 (19:54→22:07)
[2025-06-20] MEDS: MoRPHine SULFATE 4 MG/ML 1 ML CARP\\VIAL IV PRN ×2 (20:42→23:09)
[2025-06-20] MEDS ORDERED: POLYETHYLENE (MIRALAX) 17 GM PACK PO PRN (22:07)
[2025-06-20] MEDS ORDERED: MELATONIN 3 MG TAB PO PRN (22:07)
[2025-06-20] MEDS: ACETAMINOPHEN 500 MG TAB PO SCH (23:07)
[2025-06-20] MEDS: LACTATED RINGER'S 1,000 ML IV SCH (23:11)
--- NOTE | 2025-06-20 23:11 | Billing Data ---
Date of Service June 20, 2025 Coding Level of Care Code 08905 INT INP/OBS CARE
[2025-06-21] MEDS: ONDANSETRON INJ 2 MG/ML 2 ML VIAL IV PRN (02:35)
[2025-06-21] MEDS ORDERED: ACETAMINOPHEN 1000 MG/100 ML IV IV ONE (07:05)
[2025-06-21 07:50] LABS: INR 1.0 (0.9-1.1); Prothrombin Time 10.5 Seconds (9.0-12.0)
[2025-06-21 07:52] LABS: Hematocrit (blood only) 35.5 % (37.0-47.0); Hemoglobin 11.2 g/dl (12.0-16.0); Mean Corpuscular Hemoglobin 28.6 pg (25.0-34.0); Mean Corpuscular Volume 90.6 fL (80.0-100.0); Platelet Count 184 K/uL (130-400); RDW Standard Deviation 49.0 fL (36.4-46.3); Red Blood Count 3.92 M/uL (4.20-5.40); White Blood Count 3.92 K/ul (4.8-10.8)
[2025-06-21 08:04] LABS: Anion Gap 6.0 (3-11); Blood Urea Nitrogen 21.0 mg/dl (6-23); Calcium 8.6 mg/dl (8.6-10.3); Carbon Dioxide 27.0 mmol/L (21-32); Chloride 108.0 mmol/L (98-107); Creatinine Clr Calc Pharmacy 101.8 ml/min; Glucose 78.0 mg/dl (70-99(Fasting)); Potassium 3.6 mmol/L (3.5-5.1); Sodium 141.0 mmol/L (136-145)
[2025-06-21] MEDS ORDERED: LARYING-O-JET KIT (LTA) ONE (08:23)
[2025-06-21] MEDS ORDERED: ROCURONIUM BROMIDE 10 MG/ML 5 ML VIAL IV ONE ×2 (08:23→12:16)
[2025-06-21] MEDS ORDERED: DEXAMETHASONE SOD INJ 4 MG/ML VIAL ONE (08:23)
[2025-06-21] MEDS ORDERED: MIDAZOLAM HCL 1 MG/ML 2ML VIAL ONE (08:23)
[2025-06-21] MEDS ORDERED: ONDANSETRON INJ 2 MG/ML 2 ML VIAL ONE ×2 (08:23→10:35)
[2025-06-21] MEDS ORDERED: LIDOCAINE 2% 2 ML VIAL/AMP(20MG/ML) INFIL ONE (08:23)
[2025-06-21] MEDS ORDERED: PROPOFOL IV EMULSION 10 MG/ML 20 ML VIAL IV ONE (08:23)
--- NOTE | 2025-06-21 09:52 | Anesthesiology Consultation ---
Date of Service June 21, 2025 Assessment & Plan Chart Review Chart Review: Acceptable Risk for Surgery Consults Requested none History Surgery Operation Date: 06/21/25 08:10 Proposed Procedures p Robotic Laparoscopic Right Inguinal Hernia Repair Possible Open - Dick Melissa DO, FACS Height/Weight Height: 5 ft 6 in Weight: 64.7 kg Allergies Allergy/AdvReac Type Severity Reaction Status Date / Time amoxicillin Allergy Intermediate Hives Verified 06/21/25 09:07 latex Allergy Mild rash Verified 06/21/25 09:07 pollen extracts Allergy Mild NASAL Verified 06/21/25 09:07 SYMPTOMS tetracycline Allergy Mild RASH Verified 06/21/25 09:07 Medications Home Medications Medication Instructions Recorded Confirmed Last Taken mecobalamin (vitamin B12) 1,000 1,000 mcg sublingual QAM 12/19/19 06/20/25 06/20/25 mcg disintegrating tablet,sublingual multivitamin 1 tab PO QAM 12/19/19 06/20/25 06/20/25 Green Barley Otc 4 cap PO BID 08/27/20 06/20/25 06/20/25 08:00 fluorouracil 5 % topical cream 1 applic topical .COMPLEX #5 grams 10/05/24 06/20/25 Unknown apremilast 30 mg tablet (Otezla) 30 mg PO BID #180 tabs 10/29/24 06/20/25 06/20/25 08:00 tramadol 50 mg tablet 50 mg PO Q6H PRN pain #100 tabs 06/04/25 06/20/25 Unknown tizanidine 4 mg tablet 4 mg PO Q8H PRN muscle spasticity 06/06/25 06/20/25 Unknown #30 tabs krill 1,000 mg-omega-3 230 mg-dha 1 cap PO BID 06/16/25 06/20/25 06/20/25 08:00 60 ks-rab-ruhclgiif-astaxan capsule prednisone 20 mg tablet 20 mg PO DIRECTED 9 days #18 06/16/25 06/20/25 06/20/25 tabs 2ND DAY OF 40 MG sumatriptan succinate 100 mg tablet See Rx Instructions PO .COMPLEX 06/16/25 06/20/25 Unknown PRN Migraine Headache valacyclovir 1 gram tablet 2,000 mg PO .COMPLEX PRN OUT BREAKS 06/16/25 06/20/25 Unknown (Valtrex) vitamin E 268 mg (400 unit) capsule 268 mg PO DAILY 06/16/25 06/20/25 06/20/25 prednisone 5 mg tablet 5 mg PO DAILY PRN psoriasis #100 06/17/25 06/20/25 Unknown tabs Active Medications Generic Name Dose Route Start Last Admin Trade Name Freq PRN Reason Stop Dose Admin Acetaminophen 1,000 mg 06/20/25 22:07 06/21/25 06:08 Acetaminophen 500 Mg Tab PO 07/20/25 22:06 1,000 mg Q8H JOEL Administration Lactated Ringer's 1,000 mls @ 100 mls/hr 06/21/25 00:05 06/20/25 23:11 Lr IV 06/21/25 10:04 100 mls/hr .Q10H JOEL Administration Morphine Sulfate 4 mg 06/20/25 22:07 06/21/25 06:16 Morphine Sulfate 4 Mg/Ml 1 Ml Carp\Vial IV 07/04/25 22:06 4 mg Q3H PRN Administration Pain (6,7,8,9,10) Ondansetron HCl 4 mg 06/20/25 22:07 06/21/25 02:35 Ondansetron Inj 2 Mg/Ml 2 Ml Vial IV 07/20/25 22:06 4 mg Q6H PRN Administration Nausea NPO Date Last Intake of Fluids: 06/20/25 Time Last Intake of Fluids: 22:00 Date Last Intake of Solids: 06/20/25 Time Last Intake of Solids: 22:00 Past Medical History Medical History History of COVID-19 10/08/21- when tested preoperatively- mild congestion- has since resolved Migraine Right inguinal hernia Past Family History Family History Mother Diabetes Aunt Breast cancer Diabetes Brother Diabetes Aunt Diabetes Aunt Diabetes Father Unknown family medical history Brother Diabetes Denies family history of Ovarian cancer Prostate cancer Coronary heart disease Colorectal cancer Past Surgical History Surgical History H/O right inguinal hernia repair (10/29/21) Right Laparoscopic Inguinal Hernia Repair Possible Open - Tmo Jacques MD, FACS 10/29/2021 History of foot surgery BL H/O right inguinal hernia repair Right Open Inguinal Hernia Repair Dr. Jacques 09/04/2020: LMA#4, no issues per anesthesia postop progress note. History of colonoscopy H/O hernia repair (~1996) History of partial mastectomy of left breast 09/30/11-BREAST CANCER-NO ARM RESTRICTION PER PT History of laparoscopy 1990 History of hysterectomy RIGHT OOPHORECTOMY DUE TO ENDOMETRIOSIS 1990 SUBSEQUENTLY HAD HYSTERECTOMY WITH REMOVAL OF THE LEFT OVARY IN THE MID History of section TRIPLETS GMG History of appendectomy (1995) Social History Smoking Status: Never smoker Do You Dip or Chew Tobacco: No Hx Alcohol Use: No Alcohol type: wine alcohol intake frequency: holidays/special occasions only Hx Substance Use: No substance use type: does not use Physical Exam Vital Signs Last Vital Signs Temp 36.9 C 06/21/25 09:08 Pulse 57 L 06/21/25 09:08 Resp 18 06/21/25 09:08 BP 136/69 06/21/25 09:08 Pulse Ox 96 06/21/25 09:08 O2 Del Method Room Air 06/21/25 09:08 Testing Laboratory Results 06/21/25 06:53 06/21/25 06:53 PT 10.5 Seconds (9.0-12.0) 06/21/25 06:53 INR 1.0 (0.9-1.1) 06/21/25 06:53 Urine Color Yellow 06/20/25 15:39 Urine Appearance Turbid (Clear) A 06/20/25 15:39 Urine pH 8.5 (4.5-7.5) H 06/20/25 15:39 Ur Specific [place] 1.012 (1.000-1.030) 06/20/25 15:39 Urine Protein Negative (Negative) 06/20/25 15:39 Urine Glucose (UA) Negative (Negative) 06/20/25 15:39 Urine Ketones Negative (Negative) 06/20/25 15:39 Urine Nitrite Negative (Negative) 06/20/25 15:39 Ur Leukocyte Esterase Negative (Negative) 06/20/25 15:39 Urine WBC (Auto) 0-5 /hpf (0-5) 06/20/25 15:39 Urine RBC (Auto) 0-2 /hpf (0-2) 06/20/25 15:39 U Hyaline Cast (Auto) 0-2 /lpf (0-2) 06/20/25 15:39 U Epithel Cells (Auto) 0-2 /hpf (0-2) 06/20/25 15:39 Urine Bacteria (Auto) None Seen (None Seen) 06/20/25 15:39
--- NOTE | 2025-06-21 10:11 | Surgery Progress Note ---
Date of Service June 21, 2025 Assessment & Plan (1) Obturator hernia: Plan: symptomatic incarcerated right obturator hernia, desires repair, also asymptomatic fat-containing left obturator hernia plan for robotic assisted laparoscopic right obturator hernia repair, possible left risks discussed to include but not limited to bleeding, infection, recurrence, chronic pain, damage to surrounding structures including testicle, need for future or more extensive surgery, and risks of anesthesia educated on signs and symptoms of incarceration, obstruction, and strangulation return precautions given, call with questions or concerns (2) Severe right groin pain: (3) Breast cancer: (4) H/O right inguinal hernia repair: (5) H/O right inguinal hernia repair: (6) History of laparoscopy: (7) History of hysterectomy: (8) History of section: (9) History of appendectomy: Admission and Anticipated Discharge Date Admission Date: June 20, 2025 Subjective Admitted overnight for incarcerated possibly strangulated fat-containing right obturator hernia. This is bothering her for several weeks. Multiple prior abdominal surgeries. No changes overnight. Physical Exam Constitutional: WD/WN, vitals as above Respiratory: normal respiratory effort, lungs clear to auscultation Cardiovascular: RRR, no murmur, no edema Gastrointestinal (Abdomen): Percussion/Palpation: + abdomen tender and + hernia (Palpable nonreducible tender mass right groin crease); no guarding and abdomen not rigid Results & Data Vital Signs (Past 12 Hours) Vital Signs Temp Pulse Pulse Resp BP Pulse Ox O2 Del Method 06/21/25 09:08 36.9 C 57 L 18 136/69 96 Room Air 06/21/25 07:31 36.6 C 85 14 119/68 98 Room Air Laboratory Results Laboratory Results - last 24 hr 06/20/25 06/21/25 15:39 06:53 WBC 6.85 3.92 L RBC 4.72 3.92 L Hgb 14.1 11.2 L D Hct 43.6 35.5 L MCV 92.4 90.6 MCH 29.9 28.6 MCHC 32.3 31.5 L RDW Std Deviation 50.1 H 49.0 H RDW Coeff of Felipe 14.7 H 14.8 H Plt Count 233 184 MPV 9.4 9.6 Immature Gran % (Auto) 0.1 Neut % (Auto) 95.2 Lymph % (Auto) 3.6 [place] % (Auto) 1.0 Eos % (Auto) 0.0 Baso % (Auto) 0.1 Neut # (Auto) 6.51 H Lymph # (Auto) 0.25 L [place] # (Auto) 0.07 L Eos # (Auto) 0.00 Baso # (Auto) 0.01 Immature Gran # (Auto) 0.01 PT 10.5 INR 1.0 Sodium 140 141 Potassium 3.8 3.6 Chloride 100 108 H Carbon Dioxide 31 27 Anion Gap 9 6 BUN 32 H 21 Creatinine 0.59 L 0.55 L Est Cr Clr Drug Dosing Not Reportable 101.8 eGFR 103.11 104.87 BUN/Creatinine Ratio 54.2 H 38.2 H Glucose 129 H 78 Calcium 10.1 8.6 Total Bilirubin 0.5 AST 29 ALT 29 Alkaline Phosphatase 86 Total Protein 8.4 H Albumin 4.8 Globulin 3.6 Albumin/Globulin Ratio 1.3 Lipase 31 Urine Color Yellow Urine Appearance Turbid A Urine pH 8.5 H Ur Specific [place] 1.012 Urine Protein Negative Urine Glucose (UA) Negative Urine Ketones Negative Urine Blood Negative Urine Nitrite Negative Urine Bilirubin Negative Urine Urobilinogen Negative Ur Leukocyte Esterase Negative Urine WBC (Auto) 0-5 Urine RBC (Auto) 0-2 U Hyaline Cast (Auto) 0-2 U Epithel Cells (Auto) 0-2 Urine Bacteria (Auto) None Seen Urine Comment Diagnostic Findings CT scan personally viewed interpret agree with the assessment of an incarcerated right obturator hernia with some inflammation that could represent strangulation, and left fat-containing obturator hernia. Abdomen/Pelvis CT 06/20/25 15:24 EXAMINATION: CT of the abdomen and pelvis performed after the administration of IV contrast TECHNIQUE: Helical CT images from the lung bases through the symphysis pubis were obtained with contrast. Coronal and sagittal reformatted images were generated at a workstation for further assessment. Dose reduction techniques were achieved by using automatic exposure control and/or adjustment of mA and/or kV according to patient size and/or use of iterative reconstruction technique. COMPARISON: None HISTORY: Abdominal pain FINDINGS: Lower chest: No consolidation. No pleural effusion or pneumothorax. Liver: No suspicious liver lesions. Portal veins appear patent. Gallbladder: No gallstones. No evidence of acute cholecystitis. Spleen: Normal size. Pancreas: No suspicious pancreatic lesions. The pancreatic duct is not dilated. Adrenal glands: No adrenal nodules. Kidneys: No hydronephrosis or obstructing renal stones. Bladder / Pelvic organs: Unremarkable. Bowel: No bowel obstruction. No abnormal bowel wall thickening. The appendix is nonvisualized and there is no evidence for appendicitis. Lymph nodes: No retroperitoneal, mesenteric, or pelvic lymphadenopathy. Peritoneum / Retroperitoneum: No free fluid or air within the abdomen. Vessels: No infrarenal aortic aneurysm. Bones and soft tissues: No suspicious lesion in the bones. There are postsurgical changes of the right lower quadrant abdominal wall, suggesting prior inguinal hernia repair. Bilateral obturator hernia, which are fat-containing, measuring approximately 2 cm in diameter. The right hernia is associated with prominent surrounding inflammatory fat stranding. IMPRESSION: There is a fat-containing right sided obturator canal hernia, associated with prominent surrounding inflammatory fat stranding, suggesting ischemia. There is no bowel herniation. A left-sided fatty obturator hernia is also seen without inflammatory change. Postsurgical changes of right inguinal hernia repair. Electronically signed by Liam Acevedo 06-20-2025 4:56 PM PG Care Time/CCT Total # of Minutes Spent Total Time Spent with Patient: Total time spent is greater than 50% in coordination of care (as documented) at patient's floor/unit and/or counseling patient: Coding Level of Care Code 67411 SUB INP/OBS CARE 2/35MIN Diagnoses Obturator hernia K45.8 Severe right groin pain R10.31 Breast cancer C50.919 H/O right inguinal hernia repair Z98.890; Z87.19 History of laparoscopy Z98.890 History of hysterectomy Z90.710 History of section Z98.891 History of appendectomy Z90.49
[2025-06-21] MEDS ORDERED: PROMETHAZINE HCL 6.25 MG in SODIUM CHLORIDE 0.9% 50 ML IV PRN (10:14)
[2025-06-21] MEDS ORDERED: ONDANSETRON INJ 2 MG/ML 2 ML VIAL IV PRN (10:14)
[2025-06-21] MEDS ORDERED: ATROPINE SULFATE 0.1 MG/ML 10ML SYR IV PRN (10:14)
[2025-06-21] MEDS: CLINDAMYCIN/D5W 900 MG/50 ML BAG IV SCH (10:15)
[2025-06-21] MEDS ORDERED: SUGAMMADEX SODIUM 200 MG/2 ML VIAL IV ONE (10:35)
[2025-06-21] MEDS ORDERED: KETOROLAC 30 MG/ML VIAL ONE (10:35)
[2025-06-21] MEDS ORDERED: ePHEDrine sulfate 50 MG/5 ML SYR ONE (11:35)
--- NOTE | 2025-06-21 12:23 | Hospitalist Progress Note ---
Date of Service June 21, 2025 Assessment & Plan (1) Severe right groin pain: (2) Inguinal hernia: (3) Obturator hernia: (4) Migraine without aura and responsive to treatment: (5) Psoriasis: (6) Psoriatic arthritis: (7) Breast cancer: Plan Polly Tidwell is a 60 y/o F with a past medical history of migraines, cluster headaches, osteopenia, breast cancer s/p L. partial mastectomy, allergic rhinitis, psoriasis, psoriatic arthritis, hx of vitamin d deficiency, HLD, and hx of R. inguinal hernia s/p multiple repairs, admitted for R. incarcerated obturator hernia, went hernia repair today. S/P Robotic assisted BL obturator hernia repair STABLE POST-OP Post op instruction : per surgery team Tylenol/ Motrin for pain Oxycodone sent for breakthrough pain. Follow up surgery per instruction. Admission and Anticipated Discharge Date Admission Date: June 20, 2025 Subjective No overnight events. Pt seen and examined this morning at bedside prior to transport to OR. She stated she was still experiencing mostly located in her right groin with minimal relief of all pain meds given. She is excited for surgery. Denies fever, chills, CP, SOB, N/V/C/D, or complaints. Review of Systems Review of Systems: per HPI Physical Exam Physical Exam: GA: well groomed, well nourished in no apparent distress. AAOx3 HEENT: head normocephalic, atraumatic. EOMI. RESP: vesicular breath sounds b/l. No wheezes, rhonchi, or rales CARDIOVASCULAR: S1 and S2 heard. No murmurs, rubs, or gallops. Radial pulses 2+ b/l GI: Normoactive bowel sounds, no tenderness or masses felt to palpation MSK: no gross abnormalities or focal deficits SKIN: warm, dry, no edema PSYCH: appropriate mood and affect NEURO: no focal deficits Results & Data Results & Data Vital Signs (Past 12 Hours) Vital Signs Temp Pulse Pulse Resp BP Pulse Ox O2 Del Method 06/21/25 09:08 36.9 C 57 L 18 136/69 96 Room Air 06/21/25 07:31 36.6 C 85 14 119/68 98 Room Air Resident Activity Tracking Resident Involvement: Resident Care Provided Care Provided: Adult Hospital Medicine (2) Inguinal hernia Laterality: unilateral Obstruction and gangrene presence: without obstruction or gangrene Recurrence: not specified as recurrent Qualified Code(s): K40.90 - Unilateral inguinal hernia, without obstruction or gangrene, not specified as recurrent (7) Breast cancer Breast location: unspecified site of breast Estrogen receptor status: unspecified Laterality: unspecified laterality Patient sex: female Qualified Code(s): C50.919 - Malignant neoplasm of unspecified site of unspecified female breast
--- NOTE | 2025-06-21 12:50 | Operative Report ---
PG Post Operative Report Pre & Post Diagnosis Operation Date: 06/21/25 08:10 Pre-Op Diagnosis: Incarcerated right obturator hernia, left obturator hernia Post-Op Diagnosis: Bilateral obturator hernias, right incarcerated, left femoral indirect inguinal hernia, recurrent right direct inguinal hernia I identified the patient and participated in the time-out.: Yes Procedure Operation Date: 06/21/25 08:10 Actual Procedures p Robotic Laparoscopic Right Obturator Hernia Repair with Mesh(Right) - Dick Melissa DO, FACS Surgeon Dick Melissa DO, FÁTIMA Machine Operator Slitter Technician Faina Sanches Estimated Blood Loss 20 Findings Consistent with Post-Op Diagnosis Scarring from prior laparoscopic right inguinal hernia repair. Recurrent direct right inguinal hernia, incarcerated and inflamed but not strangulated right obturator hernia, 1 cm x 5 mm defect. Left direct inguinal hernia and femoral hernia, left obturator hernia, 1.5 x 1 cm. ProGrip mesh placed bilaterally, 1 piece to cover the inguinal hernia, and a 5 cm [place] ProGrip mesh covering the obturator hernia. Specimens None Anesthesia Type General Complications none Disposition Accompanied Patient To Recovery: No Disposition: Recovery Room Indications 60-year-old female with history of open and laparoscopic right inguinal hernia repairs, presented with leg and groin pain and CT scan that showed incarcerated right obturator hernia with inflammation and fat-containing left obturator hernia. Plan for robotic right repair, possible left. The risks of the procedure were discussed, all questions were answered, and the patient agreed to proceed with surgery as planned. Description of Procedure The patient was properly identified, consented, and taken to the operating room where she was placed in the supine position. General endotracheal anesthesia was induced. SCDs and a safety belt were placed. A jc catheter was placed. Preoperative antibiotics were administered. The patient's groins and abdomen were prepped and draped in the standard sterile fashion. Surgical timeout was performed and all parties were in agreement that this was the correct patient and procedure to be performed and we continued as planned. An incision was made in the upper abdomen just off of the midline. The Veress needle was inserted and saline drop test confirmed entry into the abdomen. The abdomen was insufflated with carbon dioxide which the patient tolerated without incident. The Veress needle was removed and the abdomen was entered using the Optiview technique and a 5 mm camera. The introducer was removed and the camera reinserted. No damage from initial trocar placement or Veress needle placement was identified. There were no abnormalities in the 4 quadrants of the abdomen. A sided incarcerated obturator inguinal hernia was identified on the right, and there was a small dimple the obturator foramen on the left. There was evidence of a prior laparoscopic right inguinal hernia repair. 8 mm robotic ports were then placed in the right upper quadrant and left upper quadrant. The patient was placed in the Trendelenburg position. The robot was docked, and the camera and instruments were inserted. Dissection began on the right. The peritoneum was incised approximately 6 cm above the defect, and proximal to the prior peritoneal closure, starting at the medial umbilical ligament and working laterally. The peritoneal flap was raised. There was significant scarring from the prior laparoscopic inguinal hernia repair. There were metallic corkscrew tacks that were unscrewed from the abdominal wall but left in the peritoneum. Dissection proceeded slowly. Dissection began laterally at the anterior superior iliac spine. Jerrell's ligament was then dissected medially. The round ligament was absent. A recurrent direct inguinal hernia defect was identified. The peritoneum was reduced. Dissection continued inferior to Jerrell's ligament. Incarcerated fat- containing obturator hernia was identified. This was reduced. The fat appeared inflamed but viable. The defect measured 1 cm x 5 mm in size. Hemostasis was achieved and the area was irrigated. I then turned my attention to the left. The peritoneum was incised approximately 6 cm above the defect, starting at the medial umbilical ligament and working laterally. The peritoneal flap was raised. Dissection began laterally at the anterior superior iliac spine. Jerrell's ligament was then dissected medially. The cord structures were circumferentially dissected. A small direct inguinal hernia defect was identified, as well as a small femoral hernia. The peritoneum was reduced and the round ligament was skeletonized. The round ligament was then cauterized and divided. I continued dissection inferior to Jerrell's ligament. Fat-containing obturator hernia was identified and reduced. This measured 1 cm x 1.5 cm in size. Progrip mesh was placed bilaterally and covered the direct, indirect, and femoral spaces. Additional pieces of ProGrip mesh were cut to a 5 cm [place] and placed overlying the obturator foramen on each side. These were secured into place with a single 3-0 Vicryl suture. The peritoneal flap on each side were then closed with a running absorbable barbed suture x 2. The robot was undocked and the ports were removed. The skin of all port sites were closed with 4-0 Monocryl subcuticular suture, and Dermabond was placed over the incisions. The patient was extubated in the operating room and taken to the PACU for recovery without apparent incident. All sponge, instrument, and needle counts were correct at the conclusion of the procedure. The patient tolerated the procedure well. The physician's speech language assistant was present and scrubbed for the entirety of the procedure, and was critical in positioning the patient, prepping and draping, retraction and exposure, driving the laparoscope, assistance with exchange of the robotic instruments, closure of the incisions, and placement of the dressings. I attest to the content of the Intraoperative Record and any orders documented therein. Any exceptions are noted below.
[2025-06-21] MEDS: BUPIVACAINE 0.5 % 5 MG/1 ML MPF 30ML VIAL ONE (12:56)
[2025-06-21] MEDS: HYDROmorphone INJ 2 MG/ML SYR/VIAL IV PRN (13:52)
--- NOTE | 2025-06-21 14:19 | Discharge Summary ---
Date of Service June 21, 2025 Admission HPI Per Admitting Provider Polly Tidwell is a 60 y/o F with a past medical history of migraines, cluster headaches, osteopenia, breast cancer s/p L. partial mastectomy, allergic rhinitis, psoriasis, psoriatic arthritis, hx of vitamin d deficiency, HLD, and hx of R. inguinal hernia s/p multiple repairs arriving to the [facility] ED due to worsening R. low groin pain, with pain progressively intensifying for the past month. Patient was seen by Dr. Frost, her PCP, who recommended ED follow-up due to recent pelvic U/S 06/11/2025 showing a 3cm partially reducible fat-containing hernia that was larger than seen in previous imaging post-surgical reduction. Patient reports that she has had two surgeries to repair a R. sided inguinal hernia in the past both completed by Dr. Tom Montenegro. Patient reports that her first surgery was in 2019 and was an open procedure, and her second procedure was due to a reoccurrence of R. simple inguinal hernia that was completed laparoscopically with mesh placement. Patient was initially resistant to ED follow-up but she did see general surgery outpatient 06/20 prior to following up in the ED later on the same day after following recommendations. Today patient reports significant R. lower groin pain worsened when coughing, laughing, flexing/extending R. hip, and with abduction/extension of R. hip and ambulation. Patient reports that this pain is still a 7/10 after a dose of 4mg IV morphine in the ED, and patient reports that over the past few weeks the only remitting factors to her pain have been reduction of ambulation and mild relief with use of home tramadol medication. Patient had surgical consultation while in the ED, and potential surgery tomorrow was discussed with patient who is amenable to this plan. Patient denies chest pain, palpitations, SOB, cough, wheeze, nausea, vomiting, fevers, chills and recent illnesses. Patient is currently afebrile and hemodynamically stable. ED course: CBC/CMP/UA: Largely wnl, afebrile w/o leukocytosis, anemia, or thrombocytopenia. UA negative for infectious process CT AP: BL obturator hernia, with R. sided hernia w/o bowel herniation but containing inflammatory fat stranding concerning for ischemia. Post-surgical changes of RLQ abdominal wall 2/2 hx of inguinal hernia repair. Pain/Nausea control: 4mg Morphine sulfate x1/Tylenol 1g IV and Zofran 4mg IV x1 given Fluids: 1L NSS bolus given in ED Admission Exam Per Admitting Provider General: patient resting comfortably, non-toxic in appearance, answers questions appropriately. Skin: warm, dry, intact HEENT: NC/AT, anicteric sclera, conjunctiva without injection, moist mucus membranes. Heart: +S1/S2, regular, no m/r/g Lungs: equal air entry bilaterally, no rales/rhonchi/wheezes Abd: +BS, soft, RLQ 3-4cm mass palpated along R. inguinal canal w/ significant tenderness on light palpation Ext: warm, no clubbing/cyanosis or edema, Jose Juan's neg. Neuro: nonfocal, speech intact, no facial droop, moving all extremities. Principal Diagnosis S/P Robotic hernia repair Discharge Exam GA: well groomed, well nourished in no apparent distress. AAOx3 HEENT: head normocephalic, atraumatic. EOMI. No conjunctival pallor RESP: vesicular breath sounds b/l. No wheezes, rhonchi, or rales CARDIOVASCULAR: S1 and S2 heard. No murmurs, rubs, or gallops. Radial pulses 2+ b/l GI: Normoactive bowel sounds, no tenderness or masses felt to palpation MSK: no gross abnormalities or focal deficits SKIN: warm, dry, no edema PSYCH: appropriate mood and affect NEURO: no focal deficits Discharge Data Allergies Allergy/AdvReac Type Severity Reaction Status Date / Time amoxicillin Allergy Intermediate Hives Verified 06/21/25 09:07 latex Allergy Mild rash Verified 06/21/25 09:07 pollen extracts Allergy Mild NASAL Verified 06/21/25 09:07 SYMPTOMS tetracycline Allergy Mild RASH Verified 06/21/25 09:07 Consultations 06/20/25 18:31 ED Decision to Admit Stat Procedures Performed Operation Date: 06/21/25 08:10 Actual Procedures p Robotic Laparoscopic Bilateral Inguinal Hernia Repairs with Mesh and Right Obturator Hernia Repair with Mesh(Right) - Dick Melissa, DO, FACS Ordered Studies 06/20/25 15:24 CT abd pelvis IV con only Stat Hospital Course (1) Severe right groin pain: (2) Inguinal hernia: (3) Obturator hernia: (4) Migraine without aura and responsive to treatment: (5) Psoriasis: (6) Psoriatic arthritis: (7) Breast cancer: Plan 60 yo admitted with incarcerated right inguinal hernia underwent BL hernia repair, robotic assisted by surgery. Post- operative period uneventful. Surgery team plans for DC today. Pain controlled with meds. Can take Tylenol/ Motrin. Oxycodone sent for breakthrough pain. Follow instruction per surgery. Total Time Total Time Spent Total Time Spent (In Minutes): See attending's attestation Discharge Plan Discharge Items Patient Disposition: Home - Self-Care Reason For Visit: R. INCARCERATED OBTURATOR HERNIA Discharge Diagnosis: robotic repair of bilateral obturator and inguinal hernias Condition on Discharge: Fair Activity: Per Instructions section Lifting: No more than 10 pounds Bathing Comment: may shower; no soaking in tubs/pools x 2 weeks Exercise/Sports: Wait until after follow-up appointment Driving/Machine Use: wait at least 1 week and no driving while on narcotics for pain Non-emergency contact: Primary Care Provider and Surgeon Call non-emergency contact if: you have any medication questions, your symptoms worsen, your pain is worsening, you have a fever, your temperature is above 101.5, your wound has increased redness, your wound has increased drainage and your wound pain has increased Follow-up/Referrals: Liam Frost MD [Primary Care Provider] - 06/28/25 2:00 pm Dick Melissa DO, FACS [Physician] - 07/04/25 9:15 am (please call to schedule follow up in the office in 2 weeks ) Diet: Regular Addtl Attending Provider Instructions: SPECIAL CARE INSTRUCTIONS: * You have skin glue over your incisions called dermabond. you may shower with this on. It will tend to dissolve and fall off within a couple weeks. Do not pick at the skin glue * You may ice your groin on and off alternating every 20 minutes as needed to help with pain and swelling over the next few days. * You may shower 06/22 . NO soaking in pools or baths for 2 weeks * No lifting greater than 10lbs. No strenuous exercise until cleared by surgeon. Light walking is accepted. * No driving while taking narcotic pain medication; wait at least 1 week * No drinking alcohol while taking narcotic pain medication * Do NOT take the narcotic prescribed to you post operatively called Oxycodone concurrently with your Tramadol. They are both considered narcotic pain medications and should not be taken together or risk severe side effects such as respiratory depression. If you do not wish to take the Oxycodone you may then take your tramadol as previously prescribed. Otherwise do not take the tramadol while you are on the oxycodone for post op pain. * May use Ibuprofen/Tylenol over the counter for pain as tolerated. Do not exceed 3grams of Tylenol per 24 hours * Expect some swelling and bruising. * Diet- you may resume your regular diet Call your doctor if: * Temperature above 101 degrees, nausea/vomiting, fever/chills * Pain not relieved by pain medicine ordered * There is increased drainage or redness from any incision * You have any unanswered questions or concerns [phone]. FOLLOW UP VISIT: If not already scheduled, please call the office for a follow-up visit. Office Pending Studies at Discharge: No Stand-Alone Forms: My [facility], Smoking Cessation Medications and DC Order Prescriptions: New oxycodone 5 mg tablet 5 - 10 mg PO .[id number] PRN (Reason: pain, for initial therapy, max 6 tabs per day) Qty: 15 0RF Continued fluorouracil 5 % cream 1 applic topical .COMPLEX Qty: 5 1RF Rx Instructions: WartPeel in Remedium - Apply to warts on the left foot daily as directed.; Otezla 30 mg tablet 30 mg PO BID Qty: 180 3RF tramadol 50 mg tablet 50 mg PO Q6H PRN (Reason: pain) Qty: 100 0RF prednisone 5 mg tablet 5 mg PO DAILY PRN (Reason: psoriasis) Qty: 100 0RF mecobalamin (vitamin B12) 1,000 mcg tablet,disintegrating 1,000 mcg SL QAM multivitamin Tablet 1 tab PO QAM tizanidine 4 mg tablet 4 mg PO Q8H PRN (Reason: muscle spasticity) Qty: 30 1RF [place] Otc 4 cap PO BID vitamin E 268 mg (400 unit) Capsule 268 mg PO DAILY [id number] 1,000-230-60 mg Capsule 1 cap PO BID valacyclovir [Valtrex] 1 gram tablet 2,000 mg PO .COMPLEX PRN (Reason: OUT BREAKS) Rx Instructions: 2,000 mg PO at onset of symptoms, take 2 tablets 12 hours later.; sumatriptan succinate 100 mg tablet See Rx Instructions PO .COMPLEX PRN (Reason: Migraine Headache) Rx Instructions: take 1 tab at onset of headache; if no relief, may repeat 1 tab after at least 2 hrs; max = 2-3 tabs per week prednisone 20 mg tablet 20 mg PO DIRECTED 9 Days Qty: 18 0RF Rx Instructions: STARTED 06/17/25 FOR 9 DAYS-- DIRECTED--3 tablets (60mg) x 3 days, then 2 tablets (40mg) x 3 days, then 1 tablet (20mg) x 3 days Discharge Orders: Discharge Order (Routine); Ordered 06/21/25 Ordered By: Citlalli Chance/Other Patient Handouts: Abdominal Pain Admission Data Admit Date/Time: 06/20/25 19:51 Attending Provider: Chris Acuna Admit Provider: Donal Gonzales Primary Care Provider: Liam Frost Other Providers: Sherley Clay Resident Activity Tracking Resident Involvement: Resident Care Provided Care Provided: Adult Hospital Medicine
--- NOTE | 2025-06-21 14:47 | Anesthesiology Progress Note ---
Date of Service June 21, 2025 Anesthesia Post Procedure Vital Signs Vital Signs: Temp Pulse Pulse Pulse Resp BP BP 06/21/25 14:10 36.7 C 68 16 123/62 06/21/25 14:00 62 12 124/69 06/21/25 13:50 68 14 116/67 06/21/25 13:40 60 12 120/64 06/21/25 13:30 61 12 125/67 06/21/25 13:20 70 14 118/66 06/21/25 13:10 71 15 128/71 06/21/25 13:01 36.9 C 81 17 131/70 06/21/25 09:08 36.9 C 57 L 18 136/69 06/21/25 07:31 36.6 C 85 14 119/68 06/20/25 21:45 36.8 C 78 16 147/76 H 06/20/25 21:24 06/20/25 20:55 89 18 137/104 H Pulse Ox O2 Del Method O2 Flow Rate 06/21/25 14:10 97 Nasal Cannula 3 06/21/25 14:00 96 Nasal Cannula 3 06/21/25 13:50 97 Oxymask 3 06/21/25 13:40 97 Oxymask 3 06/21/25 13:30 96 Oxymask 3 06/21/25 13:20 99 Oxymask 4 06/21/25 13:10 98 Oxymask 6 06/21/25 13:01 99 Oxymask 8 06/21/25 09:08 96 Room Air 06/21/25 07:31 98 Room Air 06/20/25 21:45 97 Room Air 06/20/25 21:24 Room Air 06/20/25 20:55 98 Room Air Pain Intensity Right Groin: Pain Intensity: 8 Abdomen: Pain Intensity: 6 Transfer of Care Handoff Completed per policy Notes Mental Status: alert / awake / arousable and participated in evaluation Nausea / Vomiting: adequately controlled Pain: adequately controlled Airway Patency, RR, SpO2: stable & adequate BP & HR: stable & adequate Hydration State: stable & adequate Anesthetic Complications: no major complications apparent and Pt Satisfied with anesthetic care
[2025-06-21 15:17] VITALS: O2SAT 96
[2025-06-21 18:45] VITALS: BP 120/66; PULSE 77; RESP 18; TEMP 97
== END 2025-06-21 21:02 | disposition home or self-care (01) ==
LOC: ED 14:29 → 3N 19:51 → SUATTDRO 19:51 → INTOOBSV 19:51 → 3N 21:24